=== PATIENT | female | born 1995 | race Caucasian/White ===

== ENCOUNTER 2017-09-02 15:20 | Emergency (ER) | payer MEDICAID ==
[2017-09-02 15:21] VITALS: BMI 29.2
[2017-09-02 15:38] VITALS: RESP 16; O2SAT 99
--- NOTE | 2017-09-02 16:10 | ED PDOC ---
Arrival/HPI - General Chief Complaint: Abdominal Pain Time Seen by Provider: 09/02/17 15:55 Historian: Patient EM Caveat: Acuity of Condition - History of Present Illness Narrative History of Present Illness (Text): 09/02/17 16:13 Pt is a 21 yr old female with PMH of frequent abdominal pain and hospital visits , who presents with epigastric pain that started last night, 3 hours after eating pasta with tomato sauce. Pt says that she had a burning sensation that refers to the back and has persisted over night, preventing her from sleeping. Says she feels like she wants to burp or vomit but can't. She tried to go to work today but the burning pain was too intense and she decided to go to the ED / Pt also reports that she was at [facility] last week and another hospital the week before that for lower abdominal pain and told to follow up with the Splitter Tender but has not found time to do so yet. LMP is currently on Day 1 with normal flow. Denies fever, chills, chest pain but states she has difficulty taking a full breath in due to the pain. Findings at [facility] indicated an ovarian cyst only but the Abdominal CT w/o contrast was unremarkable. PMD is Dr Wilkerson. Time/Duration: 24 hours Symptom Onset: Sudden Symptom Course: Unchanged Quality: Aching, Pressure Severity Level: 5 Activities at Onset: Rest Context: Home Past Medical History - Infectious Disease Hx of Infectious Diseases: None - Cardiac Hx Cardiac Disorders: No - Pulmonary Hx Respiratory Disorders: No - Neurological Hx Neurological Disorder: No - HEENT Hx HEENT Disorder: No - Renal Hx Renal Disorder: No - Endocrine/Metabolic Hx Endocrine Disorders: No - Hematological/Oncological Hx Blood Disorders: No - Integumentary Hx Dermatological Disorder: No - Musculoskeletal/Rheumatological Hx Musculoskeletal Disorders: No - Gastrointestinal Hx Gastrointestinal Disorders: No - Genitourinary/Gynecological Hx Genitourinary Disorders: Yes Other/Comment: OVARIAN CYST - Psychiatric Hx Psychophysiologic Disorder: Yes Hx Anxiety: Yes Hx Substance Use: No - Anesthesia Hx Anesthesia: No Family/Social History Family/Social History: Unknown Family HX Smoking Status: Never Smoked Hx Alcohol Use: No Hx Substance Use: No Allergies/Home Meds Allergies/Adverse Reactions: Allergies No Known Allergies Allergy (Verified 09/02/17 15:32) Review of Systems - Review of Systems Constitutional: Normal Eyes: Normal ENT: Normal Respiratory: Normal. absent: SOB, Cough Cardiovascular: Normal. absent: Chest Pain, Palpitations Gastrointestinal: Normal, Abdominal Pain, Nausea, Appetite Changes. absent: Stool Changes, Constipation, Diarrhea, Vomiting, Hematochezia, Hematemesis Genitourinary Female: Normal. absent: Dysuria, Frequency, Hematuria Musculoskeletal: Normal, Back Pain (mid back) Skin: Normal Neurological: Normal Endocrine: Normal Hemo/Lymphatic: Normal Psychiatric: Normal Physical Exam Vital Signs Reviewed: Yes Vital Signs Temp Pulse Resp BP Pulse Ox 09/02/17 15:32 98.2 F 77 16 116/73 99 Temperature: Afebrile Blood Pressure: Normal Pulse: Regular Respiratory Rate: Normal Appearance: Positive for: Well-Appearing, Non-Toxic, Comfortable Pain Distress: Mild Mental Status: Positive for: Alert and Oriented X 3 - Systems Exam Head: Present: Atraumatic, Normocephalic Pupils: Present: PERRL Extroacular Muscles: Present: EOMI Conjunctiva: Present: Normal Mouth: Present: Moist Mucous Membranes Neck: Present: Normal Range of Motion Respiratory/Chest: Present: Clear to Auscultation, Good Air Exchange. No: Respiratory Distress, Accessory Muscle Use Cardiovascular: Present: Regular Rate and Rhythm, Normal S1, S2. No: Murmurs Abdomen: Present: Tenderness (epigastric and RUQ), Normal Bowel Sounds. No: Distention, Peritoneal Signs, Rebound, Guarding, McBurney's Point Tender, Rovsing's Sign Present Back: Present: Normal Inspection Upper Extremity: Present: Normal Inspection. No: Cyanosis, Edema Lower Extremity: Present: Normal Inspection. No: Edema Neurological: Present: GCS=15, CN II-XII Intact, Speech Normal Skin: Present: Warm, Dry, Normal Color. No: Rashes Psychiatric: Present: Alert, Oriented x 3, Normal Insight, Normal Concentration Medical Decision Making ED Course and Treatment: 09/02/17 16:22 Impression Pt is a 21 yr old female with PMH of frequent abdominal pain and hospital visits , who presents with epigastric pain that started last night, 3 hours after eating pasta with tomato sauce. (+) [place] w/o radiation to right shoulder, point tenderness to the epigastric area and mildly tender over the lower quadrants Plan labs ecg Abdominal US assess and dispo 09/02/17 17:11 Progress Note IMPRESSION: Unremarkable abdominal sonogram. Discussed findings with pt and advised to avoid acidic foods; take Famotidine daily to aleviate reflux effects Advised her to see her PMD and motorized squad commanding officer for further studies Toradol to be used only when needed for moderate pain VSS on d/c - Lab Interpretations Lab Results: 09/02/17 16:30 09/02/17 16:30 Lab Results 09/02/17 16:30: Urine Color Yellow, Urine Appearance Clear, Urine pH 6.0, Ur Specific [place] <= 1.005, Urine Protein Negative, Urine Glucose (UA) Negative, Urine Ketones Negative, Urine Blood Negative, Urine Nitrate Negative, Urine Bilirubin Negative, Urine Urobilinogen 0.2, Ur Leukocyte Esterase Negative, Urine HCG, Qual Negative 09/02/17 16:30: Sodium 143, Potassium 4.0, Chloride 104, Carbon Dioxide 25, Anion Gap 18, BUN 13, Creatinine 0.6 L, Est GFR ( Amer) > 60, Est GFR ( Non-Af Amer) > 60, Random Glucose 91, Calcium 9.8, Magnesium 1.9, Total Bilirubin 0.4, AST 31, ALT 22, Alkaline Phosphatase 64, Total Protein 8.2, Albumin 4.7, Globulin 3.5, Albumin/Globulin Ratio 1.4, Lipase 36 09/02/17 16:30: PT 13.3 H, INR 1.16 H, APTT 32.7 09/02/17 16:30: WBC 5.4, RBC 4.50, Hgb 12.0, Hct 35.7 L, MCV 79.3 L, MCH 26.7, MCHC 33.6, RDW 13.5, Plt Count 306, MPV 11.0, Gran % 43.9 L, Lymph % (Auto) 43.0 H, [place] % (Auto) 7.4 H, Eos % (Auto) 5.5 H, Baso % (Auto) 0.2, Gran # 2.39 , Lymph # (Auto) 2.3, [place] # (Auto) 0.4, Eos # (Auto) 0.3, Baso # (Auto) 0.01 - RAD Interpretation Narrative RAD Interpretations (Text): 09/02/17 17:11 HISTORY: Epigastric and RUQ pain COMPARISON: None. TECHNIQUE: Sonographic evaluation of the abdomen. FINDINGS: LIVER: Measures 13.4 cm. Patent portal vein. Portal venous flow: Hepatopetal. Unremarkable echogenicity of the liver parenchyma. No mass. No intrahepatic bile duct dilatation. GALLBLADDER: Unremarkable. No gallstones. COMMON BILE DUCT: Measures 3.5 mm. No stones. No dilatation. PANCREAS: Unremarkable as visualized. No mass. No ductal dilatation. RIGHT KIDNEY: Measures 4.8 x 9.6cm. Normal echogenicity. No calculus, mass, or hydronephrosis. LEFT KIDNEY: Measures 4.9 x 10.7cm. Normal echogenicity. No calculus, mass, or hydronephrosis. SPLEEN: Normal in size and contour. No mass. AORTA: No aneurysmal dilatation. IVC: Unremarkable. OTHER FINDINGS: None. IMPRESSION: Unremarkable abdominal sonogram. Radiology Orders: 09/02/17 16:26 ABDOMEN COMPLETE [US] Stat - Medication Orders Current Medication Orders: Discontinued Medications Ondansetron HCl (Zofran Inj) 4 mg IVP STAT STA Stop: 09/02/17 16:07 Last Admin: 09/02/17 16:20 Dose: 4 mg IVP Administration Document 09/02/17 16:20 HI (Rec: 09/02/17 16:55 HI [id number]) Charges for Administration # of IVP Administrations 1 Tramadol HCl (Ultram) 50 mg PO STAT STA Stop: 09/02/17 17:13 Last Admin: 09/02/17 17:50 Dose: 50 mg MAR Pain Assessment Document 09/02/17 17:50 HI (Rec: 09/02/17 17:50 HI [id number]) Pain Reassessment Is this a pain reassessment? No Disposition/Present on Arrival - Present on Arrival Any Indicators Present on Arrival: Yes History of DVT/PE: No History of Uncontrolled Diabetes: No Urinary Catheter: No History of Decub. Ulcer: No History Surgical Site Infection Following: None - Disposition Have Diagnosis and Disposition been Completed?: Yes Diagnosis: Anxiety, Gastritis, Abdominal pain Disposition: HOME/ ROUTINE Disposition Time: 17:45 Patient Plan: Discharge Patient Problems: Current Active Problems Problem Status Onset Anxiety Acute Abdominal pain Acute Gastritis Acute Condition: GOOD Discharge Instructions (ExitCare): Gastritis Additional Instructions: Dear Alisa, Please see your family doctor for follow up care. We also recommend a follow up with your motorized squad commanding officer as recommended previously. Take medications directed. If you experience a sudden rise in fever, severe pain or nausea, return tot the emergency department. All the best in your recovery. ISAAC Tobias Prescriptions: Famotidine 20 mg PO Q12 5 Days #10 tablet traMADol [Ultram] 50 mg PO TID 3 Days #9 tab Referrals: Benita Wilkerson MD [Primary Care Provider] - Follow up with primary Forms: [employer] (Faroese)
[2017-09-02 16:51] LABS: BASO # 0.01 K/mm3 (0.0-2.0); BASO % 0.2 % (0.0-3.0); EOS # 0.3 (0.0-0.7); EOS % 5.5 % (1.5-5.0); GRAN # 2.39 (1.4-6.5); GRAN % 43.9 % (50.0-68.0); LYMPH # 2.3 (1.2-3.4); MEAN CELL VOLUME 79.3 fl (80.0-105.0); MEAN CORPUSCULAR HEMOGLOBIN 26.7 pg (25.0-35.0); MEAN CORPUSCULAR HGB CONC 33.6 g/dl (31.0-37.0); MONO # 0.4 (0.1-0.6); MONO % 7.4 % (1.0-6.0); RBC 4.5 10^6/uL (3.5-6.1); RED CELL DISTRIBUTION WIDTH 13.5 % (11.5-14.5); WHITE BLOOD COUNT 5.4 10^3/ul (4.5-11.0)
[2017-09-02 17:00] LABS: INR 1.16 (0.93-1.08); PARTIAL THROMBOPLASTIN TIME 32.7 Seconds (25.1-36.5); PROTHROMBIN TIME 13.3 SECONDS (9.4-12.5)
[2017-09-02 17:08] LABS: ALB/GLOB RATIO 1.4 (1.1-1.8); ALBUMIN 4.7 g/dL (3.0-4.8); ALT/SGPT 22 U/L (7-56); AST/SGOT 31 U/L (14-36); BLOOD UREA NITROGEN 13 mg/dL (7-21); CALCIUM 9.8 mg/dL (8.4-10.5); GFR AFRICAN-AMERICAN > 60; GFR NON-AFRICAN AMERICAN > 60; LIPASE 36 U/L (23-300)
--- NOTE | 2017-09-02 17:08 | US ---
HISTORY: Epigastric and RUQ pain COMPARISON: None. TECHNIQUE: Sonographic evaluation of the abdomen. FINDINGS: LIVER: Measures 13.4 cm. Patent portal vein. Portal venous flow: Hepatopetal. Unremarkable echogenicity of the liver parenchyma. No mass. No intrahepatic bile duct dilatation. GALLBLADDER: Unremarkable. No gallstones. COMMON BILE DUCT: Measures 3.5 mm. No stones. No dilatation. PANCREAS: Unremarkable as visualized. No mass. No ductal dilatation. RIGHT KIDNEY: Measures 4.8 x 9.6cm. Normal echogenicity. No calculus, mass, or hydronephrosis. LEFT KIDNEY: Measures 4.9 x 10.7cm. Normal echogenicity. No calculus, mass, or hydronephrosis. SPLEEN: Normal in size and contour. No mass. AORTA: No aneurysmal dilatation. IVC: Unremarkable. OTHER FINDINGS: None. IMPRESSION: Unremarkable abdominal sonogram.
[2017-09-02 17:17] LABS: URINE BILIRUBIN NEGATIVE (NEGATIVE); URINE BLOOD NEGATIVE (NEGATIVE); URINE GLUCOSE (UA) NEGATIVE (NEGATIVE); URINE LEUKOCYTE ESTERASE NEGATIVE Leu/uL (NEGATIVE); URINE PROTEIN NEGATIVE mg/dL (<30 mg/dL); URINE UROBILINOGEN 0.2 E.U./dL (<1 E.U./dL)
[2017-09-02 17:18] LABS: HCG,QUALITATIVE URINE NEGATIVE (NEGATIVE); URINE APPEARANCE CLEAR (CLEAR); URINE COLOR YELLOW (YELLOW)
[2017-09-02 23:34] VITALS: BP 120/87; PULSE 62; TEMP 98.5
== END 2017-09-02 17:56 | disposition home or self-care (01) ==
LOC: ED 15:20
DX: K29.70 Gastritis, unspecified, without bleeding (principal); F41.9 Anxiety disorder, unspecified; R10.9 Unspecified abdominal pain
CPT/HCPCS: 76700; 80053; 81003; 83690; 83735; 84703; 85025; 85610; 85730; 96374; 99283; J2405